=== PATIENT | female | born 1995 | race Caucasian/White ===

== ENCOUNTER 2019-10-29 19:14 | Emergency (ER) | payer SELFPAY ==
[~2019-10-29] VITALS: Ht 162.6 cm; Wt 61.0 kg
[2019-10-29] MEDS ORDERED: ACETAMINOPHEN 500MG TABLET PO ONE (20:15)
[2019-10-29 20:16] VITALS: BP 132/72
== END 2019-10-29 20:17 | disposition home or self-care (01) ==
LOC: ER 19:14
DX: S00.83XA Contusion of other part of head, initial encounter (principal); V43.62XA Car passenger injured in collision with other type car in traffic accident, initial encounter; Y93.89 Activity, other specified; Y92.488 Other paved roadways as the place of occurrence of the external cause
CPT/HCPCS: 81025; 99283